=== PATIENT | male | born 1955 | race Caucasian/White ===

== ENCOUNTER 2016-06-21 09:05 | Emergency (ER) | payer MEDICARE, MEDICAID ==
--- NOTE | 2016-06-21 09:06 | ED Physician Chart ---
Chief Complaint/HPI - Patient Information Date Seen:: 06/21/16 Time Seen:: 09:06 Chief Complaint:: low blood pressure History of Present Illness:: 61-year-old male history of end-stage renal disease on dialysis, brought in for acute, moderate, need for blood pressure check. History limited as patient has underlying dementia and is a very poor historian History provided by EMS Allergies:: Allergies Allergy/AdvReac Type Severity Reaction Status Date / Time No Known Allergies Allergy Verified 05/04/16 05:36 Historian:: EMS Review:: EMS run form Reviewed Review of Systems - Review of Systems Other: Complete system review otherwise unremarkable except as noted in HPI. Past Medical History - Past Medical History Past Medical History: HTN, DM, ESRD Family History: None Social History: Non Smoker, No Alcohol, No Drug Use, Care Facility Surgical History: other (right BKA) Psychiatricy History: Dementia Medication: Reviewed Family Medical History - Family Member Mother History Unknown: Yes Ethnicity: Living Status: Hx Family Hypertension: Yes Physical Exam - Physical Examination Other:: INITIAL VITAL SIGNS: Reviewed by me GENERAL: Patient is lying on gurney HEAD: Head is normocephalic. No evidence of trauma. No scalp or facial swelling EYES: No scleral icterus bilaterally ENT: Oropharynx is clear of exudate and erythema NECK: Supple. No meningismus. No masses. No evidence of trauma. No cervical spine bony step-offs or crepitus to palpation RESPIRATORY: No tachypnea. Clear to auscultation bilaterally. CV: Regular rate and rhythm. No murmurs, rubs, or gallops ABDOMEN: Soft, non-distended. No masses BACK: No ecchymoses. No evidence of trauma EXTREMITIES: Normal to inspection and palpation. No deformity SKIN: Warm and dry. No obvious rash. No jaundice NEUROLOGIC: Face is symmetric. Withdraws to pain in all extremities. Alert to self. ED Septic Shock - . Is Septic Shock (SBP<90, OR Lactate>4 mmol\L) present?: No Reassessment (Disposition) - Reassessment Reassessment:: Patient was sent here because blood pressure was noted to be 90 systolic. He was headed to dialysis this morning. On arrival patient's blood pressure was systolic 114/59 mmHg with a heart rate of 68 and 98% SPO2 on room air. He had no signs or symptoms of hemodynamic instability. Patient was discharged to be directly transported to the hemodialysis center. Reassessment Condition:: Improved - Diagnosis Diagnosis:: Medical screening exam Hypotension Incisional disease Diabetes mellitus type 2 - Aftercare/Follow up Instructions Aftercare/Follow-Up Instructions:: Counseled pt regarding lab results/diagnosis & need follow up, Refer to Discharge Instructions - Patient Disposition Discharge/Transfer:: Home Time:: 09:28 Condition at Disposition:: Improved ED Discharge Plan - Patient Disposition Admit/Discharge/Transfer: PT DISCHARGED HOME Condition at Disposition: Improved
== END 2016-06-21 09:20 | disposition home or self-care (01) ==
LOC: ER 09:05
DX: I95.9 Hypotension, unspecified (principal); E11.22 Type 2 diabetes mellitus with diabetic chronic kidney disease; I12.0 Hypertensive chronic kidney disease with stage 5 chronic kidney disease or end stage renal disease; N18.6 End stage renal disease; Z99.2 Dependence on renal dialysis; Z00.8 Encounter for other general examination
CPT/HCPCS: 82948-90; Z7502

== ENCOUNTER 2016-09-15 08:51 | Emergency (ER) | payer MEDICARE, MEDICAID ==
--- NOTE | 2016-09-15 09:21 | ED Physician Chart ---
Chief Complaint/HPI - Patient Information Date Seen:: 09/15/16 Time Seen:: 09:05 Chief Complaint:: hypotension History of Present Illness:: Patient was being transported from his residential facility to dialysis and his blood pressure was 86/46 so he was brought here. Patient denies any current medical problems. He initially refused a blood draw and an IV. The plan was to give the patient 250 mL of normal saline and do a CBC and basic metabolic panel. The dialysis Center was contacted and said they would accept the patient when his blood pressure became 100/50 or higher. Allergies:: Allergies Allergy/AdvReac Type Severity Reaction Status Date / Time No Known Allergies Allergy Verified 09/15/16 09:04 Vitals:: Vital Signs - 8 hr 09/15/16 08:51 Temp 97.3 F HR 73 RR 16 BP 79/39 O2 Sat % 100 Historian:: Patient Review:: Nurse's Note Reviewed, Transfer documents Reviewed Review of Systems - Review of Systems General/Constitutional: No fever, No chills Skin: No skin lesions Head: No headache Eyes: Other (patient is blind) ENT: No earache Neck: Neck pain Cardio Vascular: No chest pain, No palpitations Pulmonary: No SOB GI: No nausea, No vomiting G/U: No dysuria Musculoskeletal: No bone or joint pain Endocrine: No polyuria Psychiatric: No prior psych history Hematopoietic: No bruising Allergic/Immuno: No urticaria Neurological: No syncope, No focal symptoms Past Medical History - Past Medical History Past Medical History: HTN, DM, CHF, Dyslipidemia Family History: None Social History: Non Smoker, No Alcohol, Care Facility Surgical History: other (dialysis shunt; right below-knee amputation) Psychiatricy History: None Medication: Reviewed Family Medical History - Family Member Mother History Unknown: Yes Ethnicity: Living Status: Hx Family Hypertension: Yes Physical Exam - Physical Examination General/Constitutional: Awake, Alert, No distress Other Gen/Cons comments:: Chronically ill-appearing Head: Atraumatic Other Eyes comments:: Cornea of both eyes opaque Skin: Nl inspection, No rash ENMT: External ears, nose nl Neck: No nuchal rigidity Respiratory: Nl effort/Exclusion, Clear to Auscultation Cardio Vascular: RRR GI: No tenderness/rebounding/guarding, No organomegaly, No hernia, Normal BS's, Nondistended, No mass/bruits : No CVA tenderness Other Extremities comments:: Right below-knee amputation Neuro/Psych: No focal deficits Labs/Radiology/EKG Results - Lab Results Results: Laboratory Tests 09/15/16 09:04 POC Glucose 309 H Comments:: Laboratory Results - last 24 hr 09/15/16 09/15/16 09/15/16 09:04 09:30 09:30 WBC 5.4 RBC 3.44 L Hgb 11.0 L Hct 33.0 L D MCV 95.9 MCH 32.0 H MCHC Differential 33.3 RDW 13.7 Plt Count 126 L MPV 7.6 Neutrophils % 61.4 Lymphocytes % 21.3 Monocytes % 10.5 H Eosinophils % 6.7 H Basophils % 0.1 Sodium 129 L Potassium 6.2 H* Chloride 95 L Carbon Dioxide 27.7 Anion Gap 12.5 BUN 83 H* Creatinine 5.4 H* Est GFR ( Amer) 13.9 Est GFR (Non-Af Amer) 11.5 BUN/Creatinine Ratio 15.4 Glucose 341 H POC Glucose 309 H Calcium 9.9 - EKG Interpretations Rate & Rhythm: normal sinus rhythm; rate 76; T wave changes in leads 1 and aVL Assessment - Assessment General Assessment: Patient is okay to be discharged and proceed directly to dialysis Center. Blood pressure 132/61 at 1014. Potassium 6.2 but reportedly slightly hemolyzed. ED Septic Shock - . Is Septic Shock (SBP<90, OR Lactate>4 mmol\L) present?: No - <6hrs of presentation: Vital Signs: Vital Signs - 8 hr 09/15/16 08:51 Temp 97.3 F HR 73 RR 16 BP 79/39 O2 Sat % 100 Reassessment (Disposition) - Reassessment Reassessment Condition:: Improved - Diagnosis Diagnosis:: Hypotension; renal failure on dialysis; hyperkalemia - Aftercare/Follow up Instructions Aftercare/Follow-Up Instructions:: Refer to Discharge Instructions - Patient Disposition Discharge/Transfer:: dialysis Center Condition at Disposition:: Stable, Improved ED Discharge Plan - Patient Disposition Instructions: Hypotension Additional Instructions: TOLERATED.
[2016-09-15 09:38] LABS: % BASOPHILS 0.1 % (0.0-2.0); WHITE BLOOD COUNT 5.4 Th/cmm (4.8-10.8)
[2016-09-15 09:39] LABS: % EOSINOPHILS 6.7 % (0.0-5.0); % LYMPHOCYTES 21.3 % (20.0-50.0); % MONOCYTES 10.5 % (2.0-10.0); % NEUTROPHILS 61.4 % (40.0-80.0); MEAN CELL VOLUME 95.9 fl (80-99); MEAN CORPUSCULAR HGB CONC 33.3 pg (28.0-36.0); MEAN PLATELET VOLUME 7.6 fl; NEUTROPHILE ABSOLUTE 3.2 Th/cmm (1.8-8.0); PLATELET COUNT 126 Th/cmm (150-400); RED BLOOD COUNT 3.44 Mil/cmm (4.30-5.70); RED CELL DISTRIBUTION WIDTH 13.7 % (11.5-20.0)
[2016-09-15] MEDS: Sodium Chloride 0.9% 250 ML IV ONE (09:58)
[2016-09-15 09:59] LABS: BUN/CREATININE RATIO 15.4; CALCIUM SERUM 9.9 mg/dL (8.6-10.3); CARBON DIOXIDE 27.7 mEq/L (21.0-31.0)
[2016-09-15 10:16] LABS: ANION GAP 12.5 (7.0-16.0)
[2016-09-15 10:17] LABS: CREATININE - SERUM 5.4 mg/dL (0.7-1.3); POTASSIUM SERUM 6.2 mEq/L (3.5-5.1)
== END 2016-09-15 11:30 | disposition home or self-care (01) ==
LOC: ER 08:51
DX: I95.9 Hypotension, unspecified (principal); E11.22 Type 2 diabetes mellitus with diabetic chronic kidney disease; N18.9 Chronic kidney disease, unspecified; E87.5 Hyperkalemia; E78.5 Hyperlipidemia, unspecified; I50.9 Heart failure, unspecified
CPT/HCPCS: 36415-UA; 80048-TC; 82948-90; 83036-90; 85025-TC; 93005